=== PATIENT | male | born 1945 | race Caucasian/White ===

== ENCOUNTER 2019-05-14 07:28 | Inpatient (IN) | payer OTHER ==
[2019-05-05 13:15] LABS: URINE BILIRUBIN NEGATIVE (Negative); URINE BLOOD NEGATIVE (Negative); URINE CLARITY CLEAR; URINE COLOR YELLOW; URINE GLUCOSE-RANDOM* NEGATIVE (Negative); URINE KETONES NEGATIVE (Negative); URINE LEUKOCYTES-REFLEX NEGATIVE (Negative); URINE NITRITE-REFLEX NEGATIVE (Negative); URINE PROTEIN (DIPSTICK) NEGATIVE (Negative); URINE SPECIFIC GRAVITY >= 1.030 (1.005-1.035); URINE UROBILINOGEN 0.2 E.U./dl (0.2-1.0)
[2019-05-05 13:16] LABS: HEMOGLOBIN 14.9 gm/dL (14.0-18.0); MCH 29.8 pg (26.0-34.0); MCHC 34.5 g/dL (28.0-37.0); MCV 86.2 fL (80.0-100.0); RBC 4.99 mil/uL (4.50-6.00); RDW 14.5 % (10.5-14.5)
[2019-05-05 13:23] LABS: ALBUMIN 3.6 g/dL (3.4-5.0); CALCIUM 9.4 mg/dL (8.5-10.1); CREATININE 1.1 mg/dL (0.7-1.3); POTASSIUM 4.2 mmol/L (3.5-5.1)
[2019-05-06 04:07] LABS: GLYCOHEMOGLOBIN (HGB A1C) 5.9 % (4.8-5.6)
--- NOTE | 2019-05-06 17:22 | EKG ---
[address] [place] [address] ELECTROCARDIOGRAM REPORT Name: AGA ROLLE Room #: PRE IN [facility]#: [id number] Admission: Attend Phys: Aftab Yen MD Discharge: Date of : 45 Report #: [id number] THIS REPORT FOR: //name// [facility] Test Date: 2019-05-05 Test Time: 13:12:01 Pat Name: AGA ROLLE Department: Room: Gender: Field Seismologist: NELLY HARDING : 1945 Requested By: Aftab Yen Order Number: [id number] MD: Chuck Silva Measurements Intervals [place] Rate: 71 P: [place]: QRS: -47 QRSD: 136 T: 6 QT: 404 QTc: 439 Interpretive Statements Atrial fibrillation RBBB and LAFB No previous ECG available for comparison Electronically Signed On 05-06-2019 17:22:17 CDT by Chuck Silva [email or web address] <ELECTRONICALLY SIGNED> By: Chuck Silva MD, [facility] 05/06/19 1722 1312 1312 Chuck Silva MD, FACC /EPI
[~2019-05-14] VITALS: Ht 182.9 cm; Wt 113.4 kg
--- NOTE | ~2019-05-14 | O ---
[facility] [place] [address] OPERATIVE REPORT Name: AGA ROLLE Room #: 150-6 ADM IN M.R.#: [id number] Admission: 05/14/19 Attend Phys: Aftab Yen MD Discharge: Date of : 45 Report #: [id number] THIS REPORT FOR: //name// CC: Yemi Yen [facility] DATE OF SERVICE: 05/14/2019 PREOPERATIVE DIAGNOSIS: Left knee osteoarthritis. POSTOPERATIVE DIAGNOSIS: Left knee osteoarthritis. PROCEDURE: Left total knee arthroplasty using Navio robotic assistance. SURGEON: Aftab Yen MD LACQUER MAKER: Joan Ramon PA-C. ANESTHESIA: LMA with an adductor canal block. IMPLANTS: Muñoz [employer] Nephew size 7 Legion cobalt chrome posterior stabilized femur, a size 6 tibia, a size 35 patella and a size 9 polyethylene. TOURNIQUET TIME: 71 minutes. ESTIMATED BLOOD LOSS: 25 mL. COMPLICATIONS: None. SPECIMENS: None. CONDITION UPON LEAVING THE OPERATING ROOM: Stable. INDICATIONS FOR PROCEDURE: The patient is a 74-year-old gentleman with left knee osteoarthritis. He failed conservative measures for this and after discussion with him, he elected for left total knee arthroplasty. DESCRIPTION OF PROCEDURE: Risks, benefits, alternatives, complications were discussed in detail with the patient including but not limited to risk of anesthesia, risk of damage to nerves, arteries, blood vessels, risk for infection, bleeding, risk for continued knee pain, need for reoperation. Informed consent was obtained from the patient. Left knee was appropriately marked in the preoperative holding area. IV Ancef was given for preoperative antibiotics. Adductor canal block was placed by anesthesia. He was brought to the operating room and placed in supine position on operating room table. [address] [address] OPERATIVE REPORT Name: AGA ROLLE NEREYDA Room #: 150-6 [facility] IN M.R.#: [id number] Admission: 05/14/19 Attend Phys: Aftab Yen MD Discharge: Date of : 45 Report #: [id number] anesthesia was induced without complication. Tourniquet was placed on the left thigh. Left lower extremity was prepped and draped in normal sterile fashion. Timeout was performed properly identifying the patient and procedure as well as the instrumentation and implants. All in the operating room were in agreement. Left lower extremity was exsanguinated, tourniquet was inflated. Tourniquet time was 71 minutes. Standard midline approach to knee was made with 10 blade through the skin. Dissection was taken down sharply to the fascia and deep flaps were developed medially and laterally. Fresh 10 blade was used to make a medial parapatellar arthrotomy and the knee was inspected. There was severe medial compartment osteoarthritis with moderate lateral compartment osteoarthritis. It was decided to proceed with total knee arthroplasty. ACL and PCL were removed sharply. Reference pins were placed in the femur and the tibia and the knee was digitally mapped using the RELEASEIF robotic system. Intraoperative plan was made and we sized the size 7 femur and a size 6 tibia and a size 11 spacer. After acceptance of the intraoperative plan, the distal femoral cut was made with a Navio bur. The 4-in-1 cutting block was placed and the anterior, posterior and chamfer cuts were made for a size 7 femur. Attention was then turned to the tibia. The menisci removed with Bovie cautery. Tibial resection guide was pinned in place and tibial resection was made. Flexion and extension gaps were checked and found to have good balance in flexion and extension both medially and laterally. The tibia was sized, found to be a size 6. A size 6 tibial trial was placed, pinned and punched. A size 7 femoral trial was placed and the box cut was made. This was then trialed with a size 9 polyethylene. Knee was taken through range of motion, found to be stable, found to have a millimeter laxity medially and laterally throughout range of motion. This was verified digitally as well as manually. A 9 mm was taken off the posterior surface of the patella and a size 35 patellar button was placed. Knee was taken through range of motion, found to be stable, found to have good balance in flexion and extension and good patellar tracking. After this, bony ends were thoroughly irrigated with normal saline. A final size 6 tibia, size 7 cobalt chrome posterior stabilized femur and a size 35 patella were cemented in place using standard cementation techniques. While the cement cured, a periarticular injection consisting of morphine, ropivacaine, epinephrine and Toradol was placed around the knee joint capsule. After the cement cured, the tourniquet was deflated. Hemostasis was obtained with Bovie cautery. Final size 9 polyethylene was placed. A gram of vancomycin was placed deep in the joint. The fascia was closed with 0 Vicryl, skin was closed with 2-0 Vicryl, 3-0 Monocryl. Dermabond and a MARY dressing was applied. The patient tolerated this procedure well and went to the recovery room under care of anesthesia postoperatively. By: [id number] Aftab Yen MD /nt
[~2019-05-14 07:28] MED LIST: ALPHA LIPOIC A200 MG PO; CALCIUM CITRAT1 EA14 PO; COUMADIN 1MG TAB1 M1 PO; FLAX SEED OIL1 EACH PO; GLUCOPHAGE XR750 MG PO; GLUCOSAMINE CH1 EAC1 PO; IRON325 M1 PO; MAGNESIUM OXID500 M1 PO; NEURONTIN 300300 M1 PO; POTASSIUM99 M1 PO; PROSCAR 5MG TABL5 MG PO; TURMERIC PO; VITAMIN B COMP1 EACH PO; VITAMIN C1000 MG PO; VITAMIN D310000 UNIT PO; VITAMIN E400 UNIT PO; WARFARIN SODIUM2 MG PO; ZOLOFT100 MG PO
[2019-05-14 14:11] VITALS: BP 130/67
[2019-05-14 14:29] LABS: INR 1.1; PROTIME 11.2 Seconds (9.3-11.4)
[2019-05-14 17:45] VITALS: BP 127/86
[2019-05-14 18:00] VITALS: BP 117/66
[2019-05-14 18:15] VITALS: BP 138/66
[2019-05-14 19:13] VITALS: BP 133/76
[2019-05-15 05:08] VITALS: BP 120/67
[2019-05-15 06:10] LABS: HEMOGLOBIN 13.3 gm/dL (14.0-18.0); MCH 29.5 pg (26.0-34.0); MCHC 33.4 g/dL (28.0-37.0); MCV 88.2 fL (80.0-100.0); RBC 4.53 mil/uL (4.50-6.00); RDW 14.7 % (10.5-14.5); WBC 17.5 thou/uL (4.0-11.0)
[2019-05-15 07:49] VITALS: BP 109/59
--- NOTE | 2019-05-15 08:36 | NUR ---
PROGRESS PT A/OX4, VSS, LUNGS CLEAR ABDOMEN SOFT WITH POSITIVE BS, TOLERATING REG DIET AND HAS ADEQUATE FLUID INTAKE. VOIDING QS. LEFT KNEE WITH INTACT MARY DRESSING DECREASED SENSATION WORE OFF OVER NIGHT BLOCK WORE OFF TOOK SCHEDULED LONG ACTING ORAL MORPHINE WITH GOOD EFFECT SLEPT FOR MOST OF SHIFT, TEDS SCDS, AND ICEMAN IN PLACE WORE HIS CPAP LAST NIGHT. PLAN TO HAVE PT/OT THEN POSSIBLE DISCHARGE HOME.
[2019-05-15] MEDS ORDERED: NEURONTIN 300300 M1 PO (12:50)
[2019-05-15] MEDS ORDERED: MS CONTIN15 MG PO (12:50)
[2019-05-15] MEDS ORDERED: PERCOCET PO (12:50)
--- NOTE | 2019-05-15 12:56 | NUR ---
INITIAL ASSESSMENT: Pt evaluated for d/c planning needs. Reviewed chart and spoke with nurse, pt and spouse. Pt is alert and oriented. Pt lives in duplex with and was independent with ADL's prior to admission. Pt has CPAP at home, but no other DME. Pt has not had home health in the past. Pt has outpatient physical therapy arranged near their home to begin on Sunday. Pt does not require home health services. PT worked with pt and is recommending walker for home use. Ordered walker from [facility]. It will be delivered later today. Pt plans on returning home on d/d from hospital. Will remain available to assist as needed.
[2019-05-15 16:10] VITALS: BP 109/59
--- NOTE | 2019-05-15 19:55 | NUR ---
PT A&OX4, VSS, PAIN IN LEFT KNEE. PT DISCHARGED HOME, IV REMOVED, PRESCRIPTIONS AND DISCHARGE INSTRUCTIONS GIVEN. NO SIGNS OF DISTRESS AT TIME OF DISTRESS. MARY DRESSING C/D/I.
== END 2019-05-15 16:43 | disposition home or self-care (01) | DRG 470 ==
LOC: PRE 07:28 → TBA 13:15 → 4W 13:15 → ENTRNSPT 05-15 16:14 → 4W 05-15 16:43
PROVIDERS: ADMIT Orthopaedic Surgery
DX: M17.12 Unilateral primary osteoarthritis, left knee (principal); D72.829 Elevated white blood cell count, unspecified; I48.2 Chronic atrial fibrillation; N40.0 Benign prostatic hyperplasia without lower urinary tract symptoms; F32.9 Major depressive disorder, single episode, unspecified; Z88.6 Allergy status to analgesic agent; Z79.899 Other long term (current) drug therapy; Z79.01 Long term (current) use of anticoagulants
CPT/HCPCS: 10047; 50010; 50101; 50415; 50954; 51130; 51225; 53000; 53078; 53364; 54118; 56527; 56528; 57095; 57103; 57110; 57127; 57180; 62110; 62900; 64039; 70005